=== PATIENT | male | born 2000 | race Caucasian/White ===

== ENCOUNTER 2022-07-21 20:02 | Outpatient (CLI) | payer MEDICAID, SELFPAY ==
--- NOTE | 2022-07-21 20:00 | DI.RAD_ITS ---
Exam(s) XR CHEST 2V PA LATERAL EXAM: XR CHEST 2V PA LATERAL CLINICAL HISTORY: SOB TECHNIQUE: 2D digital imaging was performed. COMPARISON: No exams were available for comparison FINDINGS: HEART: Normal size. Aorta: Not dilated. PULMONARY VASCULATURE: Normal. LUNGS: Clear. PLEURAL SPACE: No pleural effusion or pneumothorax. BONE:Unremarkable for age. IMPRESSION: No acute abnormality. DATA REPOSITORY: RADIATION DOSE DELIVERED:
--- NOTE | 2022-07-21 20:22 | DI.VRAD_ITS ---
PROCEDURE INFORMATION: Exam: XR Chest Exam date and time: 07/21/2022 8:17 PM Age: 22 years old Clinical indication: Shortness of breath; Additional info: SOB TECHNIQUE: Imaging protocol: Radiologic exam of the chest. Views: 2 views. COMPARISON: No relevant prior studies available. FINDINGS: Lungs: Unremarkable. No consolidation. Pleural spaces: Unremarkable. No pleural effusion. No pneumothorax. Heart/Mediastinum: Unremarkable. No cardiomegaly. Bones/joints: Unremarkable. IMPRESSION: No acute findings. Dictated and Authenticated by: Jose Curtis MD. Ordering:NIMO Catherine MD
== END 2022-07-21 20:22 ==
LOC: DI 20:02
PROVIDERS: PCP Pediatrics; Visit Provider Physician Assistant
DX: R06.02 Shortness of breath (principal)
CPT/HCPCS: 71046

== ENCOUNTER 2022-07-22 16:53 | Outpatient (CLI) | payer MEDICAID, SELFPAY ==
[2022-07-22 16:26] LABS: Abs Immature Grans 0.04 10^3/uL (0.0-0.06); Absolute Basophil Count 0.02 10^3/uL (0.0-0.2); Absolute Lymphocyte Count 2.71 10^3/uL (1.2-3.4); Absolute Monocyte Count 0.97 10^3/uL (0.1-0.8); Absolute Neutrophil Count 6.11 10^3/uL (1.2-6.7); Basophils % 0.2; HCT 44.2 % (40.0-50.0); HGB 15.3 g/dL (13.5-17.5); Immature Grans % 0.4; Lymphocytes % 27.2; MCH 28.7 pg (27.0-33.0); MCHC 34.6 % (32.0-36.0); MCV 83 fL (80-95); MPV 9.7 fL (8.0-11.0); Monocytes % 9.7; Neutrophils % 61.5; Platelet Count 256 10^3/uL (130-400); RBC 5.34 10^6/uL (4.36-5.78); RDW 12.5 % (11.8-14.1); RDW-SD 38.1 fL; WBC 9.95 10^3/uL (4.4-10.8)
[2022-07-22 16:34] LABS: ESR < 1 mm/hr (0-15)
[2022-07-22 16:50] LABS: ALT 33 U/L (16-63); AST 29 U/L (15-37); Albumin 4.6 g/dL (3.4-5.0); Alkaline Phosphatase 89 U/L (46-116); Anion Gap 9.7 mmol/L (3-11); BUN 13 mg/dL (7-18); CO2 27.3 mmol/L (21.0-32.0); CREATININE 0.8 mg/dL (0.70-1.30); Calcium 9.3 mg/dL (8.5-10.1); Chloride 104 mmol/L (98-107); Estimated GFR 129.93 (mL/min/1.73m2); Glucose 102 mg/dL (74-106); Magnesium 2.1 mg/dL (1.8-2.4); Potassium 3.4 mmol/L (3.5-5.1); Sodium 141 mmol/L (136-145); Total Protein 7.5 g/dL (6.4-8.2)
[2022-07-22 21:49] LABS: Diff Comment Agrees w/ Instrument; RBC Morphology Normal
== END 2022-07-22 16:54 | disposition home or self-care (01) ==
LOC: LBO 16:53
PROVIDERS: PCP Pediatrics; Visit Provider Pediatrics
DX: R06.02 Shortness of breath (principal); R10.9 Unspecified abdominal pain; R06.09 Other forms of dyspnea; R50.9 Fever, unspecified; F12.90 Cannabis use, unspecified, uncomplicated
CPT/HCPCS: 36415; 80053; 85652; 83735; 84443; 85025

== ENCOUNTER 2022-10-14 15:37 | Outpatient (RCR) | payer MEDICAID, SELFPAY ==
--- NOTE | 2022-10-14 15:39 | HOLTER_ITS ---
APPROVED REPORT Conclusion This is a 48-hour Holter monitor ordered for palpitations Rhythm throughout is sinus with an average heart rate of 77. Minimum was 47, maximum 148 Sinus arrhythmia was noted, which is a normal finding There were no atrial or ventricular dysrhythmias Patient's symptoms were reported. These had no correlation with cardiac rhythm
== END 2022-10-22 23:59 | disposition home or self-care (01) ==
LOC: CARDOPNVT 15:37
PROVIDERS: PCP Pediatrics; Visit Provider Pediatrics
DX: R00.2 Palpitations (principal); R06.00 Dyspnea, unspecified
CPT/HCPCS: 93225

== ENCOUNTER 2022-10-25 15:35 | Outpatient (RCR) | payer MEDICAID, SELFPAY | END 2022-11-22 23:59 | disposition home or self-care (01) | LOC: CARDOPNVT 15:35 | PROVIDERS: PCP Pediatrics; Visit Provider Pediatrics | DX: R00.2 Palpitations (principal) | CPT/HCPCS: 93226 ==